=== PATIENT | male | born 1975 ===

== ENCOUNTER 2019-10-16 16:48 | Inpatient (IN) | payer OTHER ==
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
--- NOTE | 2019-10-16 18:59 | XR ---
PROCEDURE: XR foot complete RT - 3V DATE AND TIME: 10/16/2019 6:30 PM CLINICAL INDICATION: Pain; Trauma TECHNIQUE: Department protocol COMPARISON: None FINDINGS: There is no fracture or malalignment. The soft tissues are unremarkable. IMPRESSION: NO ACUTE PROCESS.
--- NOTE | 2019-10-16 19:06 | XR ---
PROCEDURE: XR hand complete bilateral -total 6 views DATE AND TIME: 10/16/2019 6:30 PM CLINICAL INDICATION: PHH; Trauma TECHNIQUE: Department protocol total 6 views COMPARISON: None RIGHT HAND FINDINGS: AP, oblique AP and lateral views. There is overlapping of structures at the four th metacarpal base on the AP and oblique AP views, and even more so on the lateral view. Clinical exc lusion of fracture is requested; correlate for point tenderness. Otherwise, the hand and wrist is ne gative for acute fracture or malalignment. LEFT HAND FINDINGS: AP, oblique AP and lateral views. The bones and joints and soft tissues are nega tive for acute findings. IMPRESSION: 1) RIGHT HAND: Indistinct right fourth metacarpal base radiographic evaluation as discussed. If this position is negative clinically, then the entire radiographic examination is negative for fracture o r malalignment. 2) LEFT HAND: Negative for fracture or malalignment.
[2019-10-16 19:18] LABS: Amphetamine Screen,Urine Not Detected (NotDetected); Barbiturate Screen,Urine Not Detected (NotDetected); Benzodiazepines Screen,Urine Not Detected (NotDetected); Cocaine Screen,Urine Not Detected (NotDetected); Methadone Screen, Urine Not Detected (NotDetected); Opiate Screen,Urine Not Detected (NotDetected); Oxycodone Screen, Urine Not Detected (NotDetected); Phencyclidine Screen,Urine Not Detected (NotDetected); Tricyclic Antidepressant,Urine Not Detected (NotDetected); Urn Cannabinoid Scrn Not Detected (NotDetected)
[2019-10-17] MEDS ORDERED: MAG HYDROX/AL HYDROX/SIMETH 30 ML CUP PO PRN (00:40)
[2019-10-17] MEDS ORDERED: ZIPRASIDONE 20 MG VIAL IM PRN (00:40)
[2019-10-17] MEDS ORDERED: MAGNESIUM HYDROXIDE 2,400 MG/10 ML CUP PO PRN (00:40)
[2019-10-17] MEDS ORDERED: LORazepam 2 MG/ML INJ IM PRN (00:45)
[2019-10-17] MEDS: NICOTINE 14MG/24HR PATCH TRANSDERM SCH (09:24)
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
[2019-10-18] MEDS: NICOTINE 14MG/24HR PATCH TRANSDERM SCH (09:03)
[2019-10-18 09:52] LABS: Basophils # (A) 0.1 k/uL (0-0.2); Basophils % (A) 1 %; Eosinophils # (A) 0.4 k/uL (0-0.7); Eosinophils % (A) 5 %; HCT 47.6 % (39.0-53.0); HGB 15.3 gm/dL (13.0-17.5); Lymphocytes % (A) 27 %; MCH 28.9 pg (25.0-35.0); MCHC 32.1 g/dL (31.0-37.0); Mean Platelet Volume 8.1; Monocytes # (A) 0.4 k/uL (0-1.0); Monocytes % (A) 5 %; Neutrophils # (A) 4.5 k/uL (1.3-7.7); Neutrophils % (A) 60 %; Platelet Count 165 k/uL (150-450); RBC 5.29 m/uL (4.30-5.90); RDW 12.2 % (11.5-15.5); WBC 7.4 k/uL (3.8-10.6)
[2019-10-18 10:12] LABS: ALT 27 U/L (21-72); AST 24 U/L (17-59); African American GFR (CKD) >90 (>60 ml/min/1.73 sqM); Albumin 4.1 g/dL (3.5-5.0); Alkaline Phosphatase 79 U/L (38-126); Anion Gap 7 mmol/L; Blood Urea Nitrogen 11 mg/dL (9-20); Calcium 9.7 mg/dL (8.4-10.2); Carbon Dioxide 28 mmol/L (22-30); Chloride 105 mmol/L (98-107); Cholesterol 147 mg/dL (<200); Glucose 81 mg/dL (74-99); HDL Cholesterol 48 mg/dL (40-60); LDL Cholesterol,Calculated 63 mg/dL (0-99); Non-African American GFR(CKD) >90 (>60 ml/min/1.73 sqM); Potassium 4.3 mmol/L (3.5-5.1); Sodium 140 mmol/L (137-145); Total Bilirubin 0.3 mg/dL (0.2-1.3); Total Protein 6.7 g/dL (6.3-8.2); Triglycerides 180 mg/dL (<150)
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
--- NOTE | 2019-10-18 15:48 | P.PN ---
Progress Note - Text Progress Note Date: 10/18/19 Clinical Problems: Bipolar disorder most recent episode manic without psychotic features Interim history: I reviewed the medical record, interviewed the patient and discuss his treatment and treatment plan during team meeting. Medicine in orthopedic surgery consult appreciated. He met with his divorce attorney this morning and would not stipulate to a treatment order. During our interview he stated he disagrees with my recommendation that he requires treatment with a psychiatric medication. He does not believe that he has a mental illness and will not take psychiatric indications. However, he requested that I complete a medical certificate so that he could withdraw from his residential pension. Mental status exam: He presented as a casually groomed 44-year-old male who was pleasant on approach. He made eye contact and attended to the interview. He had calluses on his knuckles but no prominent physical abnormalities. He had a bright facial expression. He was not restless during interview but is recalling patient unit. He showed pressured speech and he was hyperverbal. His affect was elevated but not inappropriate. He did not express suicidal ideation or wishes. He did not express ideas reference, paranoid ideation or delusions. His thinking was abstract and his associations appeared logical. He did not express clang associations, neologisms or blocking. He denied hallucinations and did not appear to be responding to internal stimuli. Assessment: He has signs and symptoms of acute viktor uncomplicated by psychosis. He is limited insight and understanding of his illness or need for psychiatric treatment. Plan: Continue inpatient hospitalization. Continue safety precautions. Continue her discussion of need for psychotropic medications and offer treatment with a mood stabilizer. Probate hearing scheduled for next week. Evaluate clinical status response to treatment daily basis.
[2019-10-18 16:45] LABS: Hemoglobin A1C 5.4 % (4.0-6.0)
[2019-10-19] MEDS: NICOTINE 14MG/24HR PATCH TRANSDERM SCH (12:29)
--- NOTE | 2019-10-19 12:38 | P.PN ---
Progress Note - Text Progress Note Date: 10/19/19 Clinical Problems: Bipolar disorder most recent episode manic without psychotic features Interim history: I reviewed the medical record, interviewed the patient and discuss his treatment and treatment plan during team meeting. He was hyperverbal and intense. He had multiple complaints and carried with him a stack of papers where he had been keeping notes. 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 He plans to ask the conciliation court judge to ordered him out of the state [place]. 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 I attempted to engage him in a discussion of treatment of his bipolar illness. He remains opposed to treatment and talked about negative experiences during prior hospitalizations. At one point he agreed to take medication "but at 11/14 the dose you recommend." Mental status exam: He presented as a casually groomed 44-year-old male who was pleasant on approach. He made eye contact and attended to the interview. He had calluses on his knuckles but no prominent physical abnormalities. He had a bright facial expression. He was not restless during interview. His speech was loud and pressured. He was hyperverbal. His affect was expansive and intense. He did not express suicidal ideation or wishes. He did not express ideas reference, paranoid ideation or delusions. His thinking was abstract and his associations appeared logical. He did not express clang associations, neologisms or blocking. He denied hallucinations and did not appear to be responding to internal stimuli. Assessment: He has signs and symptoms of acute viktor uncomplicated by psychosis. He is limited insight and understanding of his illness or need for psychiatric treatment. Plan: Continue inpatient hospitalization. Continue safety precautions. Continue efforts to get him to start a mood stabilizer either lithium, Depakote or a second generation antipsychotic. Continue her discussion of need for psychotropic medications and offer treatment with a mood stabilizer. Probate hearing scheduled for next week. Evaluate clinical status response to treatment daily basis.
[2019-10-20] MEDS: NICOTINE 14MG/24HR PATCH TRANSDERM SCH (08:33)
--- NOTE | 2019-10-20 12:50 | P.PN ---
Progress Note - Text Progress Note Date: 10/20/19 Interval history: Patient was seen wandering the hallways and was agreeable to peak in the office. Patient was loud and hyperverbal during conversation and was speaking about "multiple traumas" which he experience at the previous hospital that he was at. He explained of getting several PRN injection medications and claims that he has "PTSD from it". Patient also states that she does not like taking medications and feels that it messes with his head. Patient was tangential and had loose associations and kept on reserve referring to himself as "I have a mental problem". He claims that his mood is "fine" and is somewhat irritable and labile. He admits to fair energy with poor sleep at night. At this time patient denies any suicidal or homicidal ideations intent or plan. Denies any Auditory or visual hallucinations. Patient denies any side effects from the medications and has been compliant with meds. Mental status exam: General Appearance: Patient appears to be stated age is alert, difficult to redirect loud and intrusive. Fair hygiene and grooming. Behavior: No agitated behavior. Patient is loud and irritable at times. Speech: Patient's speech is fluent and nonpressured. Loud and intrusive. Mood/Affect: Mood is "fine", affect is congruent and labile. Suicidality/Homicidality: Patient denies having any suicidal or homicidal ideation intent or plan. Perceptions: Patient denies any auditory or visual hallucinations. Though content/process: Patient experiences some paranoia, is tangential/illogical. Hyperverbal and has racing thoughts. Memory and concentration: AOX3, grossly intact for the purposes of this session Judgment and insight: Poor Assessment/Plan: Continue with current diagnosis. Patient continues to meet criteria for inpatient psychiatric admission for symptom stabilization and safety. Patient is currently awaiting probate Court for next week. Patient was agreeable to take Abilify today to see how will help him. We'll start Abilify 5 mg by mouth daily for mood stabilization/psychosis. Monitor for medication compliance and for any psychotropic medication side effects. Will continue to monitor ongoing response to treatment.
[2019-10-20] MEDS: ARIPiprazole 5 MG TAB PO SCH (13:39)
[2019-10-20] MEDS: IBUPROFEN 600 MG TAB PO PRN (14:52)
[2019-10-20] MEDS: NICOTINE POLACRILEX 2 MG GUM BUCCAL PRN ×2 (14:52→18:38)
[2019-10-20] MEDS: valACYclovir HCL 1,000 MG TABLET PO SCH (20:31)
[2019-10-20] MEDS: LORazepam 1 MG TAB PO PRN (23:46)
[2019-10-21] MEDS: valACYclovir HCL 1,000 MG TABLET PO SCH ×2 (09:04→21:09)
[2019-10-21] MEDS: ARIPiprazole 5 MG TAB PO SCH (09:04)
[2019-10-21] MEDS: NICOTINE 14MG/24HR PATCH TRANSDERM SCH (09:04)
[2019-10-21] MEDS: NICOTINE POLACRILEX 2 MG GUM BUCCAL PRN ×4 (09:05→19:03)
--- NOTE | 2019-10-21 12:40 | P.PN ---
Progress Note - Text Progress Note Date: 10/21/19 Interval history: Patient was seen carrying multiple papers and documents and also a Bible in speaking with the nurse at the nurse's desk and was was agreeable to peak in the office. Patient was mildly less irritable and intrusive todaywith administrative underwriter and mildly more directable during conversation. Patient continues to speak about his mistrust with police and being involved in legal troubles. He spoke about his son and girlfriend not sticking up for him and also how she needs to come up with bail money to pay the police. patient also spoke about the police having his things and him not being able to get them. Patient claims that the Abilify is making him feel calm or and he is taking it. Patient claimed that he took Ativan last night for sleep and was requesting to be put on another medication to help him further with sleep and was agreeable to take Benadryl when necessary. Patient continues to have mistrust from doctors and continues to state "I don't need medications". he was less irritable and labile. He admits to fair energy with poor sleep at night. At this time patient denies any suicidal or homicidal ideations intent or plan. Denies any Auditory or visual hallucinations. Patient denies any side effects from the medications and has been compliant with meds. Mental status exam: General Appearance: Patient appears to be stated age is alert, difficult to redirect loud and intrusive. Fair hygiene and grooming. Behavior: No agitated behavior. Patient is loud and irritable at times. Speech: Patient's speech is fluent and nonpressured. Loud and intrusive. Mood/Affect: Mood is "ok", affect is congruent and labile. Suicidality/Homicidality: Patient denies having any suicidal or homicidal ideation intent or plan. Perceptions: Patient denies any auditory or visual hallucinations. Though content/process: Patient experiences some paranoia, is tangential, lo gical, mildly improved. Hyperverbal and racing thoughts are improving. Memory and concentration: AOX3, grossly intact for the purposes of this session Judgment and insight: Poor, mildly improving. Assessment/Plan: Continue with current diagnosis. Patient continues to meet criteria for inpatient psychiatric admission for symptom stabilization and safety. Patient is currently awaiting probate Court for next week. Patient is agreeable to continue taking Abilify 5 mg daily for mood stabilization/psychosis. added Benadryl 50 mg when necessary for sleep. Monitor for medication compliance and for any psychotropic medication side effects. Will continue to monitor ongoing response to treatment.
[2019-10-21] MEDS: IBUPROFEN 600 MG TAB PO PRN ×2 (13:54→21:10)
[2019-10-21] MEDS: LORazepam 1 MG TAB PO PRN (13:56)
[2019-10-21] MEDS: diphenhydrAMINE 50 MG CAP PO PRN (21:11)
[2019-10-22] MEDS: ARIPiprazole 5 MG TAB PO SCH (08:09)
[2019-10-22] MEDS: NICOTINE 14MG/24HR PATCH TRANSDERM SCH (08:10)
[2019-10-22] MEDS: IBUPROFEN 600 MG TAB PO PRN ×3 (08:10→21:44)
[2019-10-22] MEDS: NICOTINE POLACRILEX 2 MG GUM BUCCAL PRN ×4 (08:11→21:45)
[2019-10-22] MEDS: valACYclovir HCL 1,000 MG TABLET PO SCH ×2 (09:11→21:42)
[2019-10-22] MEDS: ACETAMINOPHEN TAB 325 MG TAB PO PRN (13:58)
--- NOTE | 2019-10-22 15:34 | P.PN ---
Progress Note - Text Progress Note Date: 10/22/19 Interval History: Patient is a 44-year-old male whose chart was reviewed and the patient was seen. Patient during the interview complained about how he been treated in hospitals in the past, how people had been treated in psychiatric hospital that he had been admitted to a year ago but he was unable to tell me the name. Patient states that he is going to see a [facility] doctor to have cameras installed in his body so that he can fill [place] care and show it to people about what's really going on in hospitals because the hospitals are being controlled by the government. Patient then went on to complain about having been a [employer] employee but was fired in August of this year because of a text message that he sent to family members that apparently went to all the contacts in his phone. Patient states that he was also asked to leave the living situation with his fiance and then discussed the fact that he is unaware if whether there is a protective order against him by her and states that he doesn't think that she would have done that. Patient also reported to me that he had been traveling the [place] for the last several months panhandling to understand the life of the homeless and now feels that that is all a scam. Patient then went on to complain about people that over him money and that he has been placed in hospitals for helping people buying them cars, insurance and then went on to complain about a man who he bought a car for use posterior been depositing money in the patient's checking account to pay him back and never has. Patient states that he took a trip to [facility] to study the homeless. Patient reports that he doesn't need medication that he is not going to have medication forced on him as it has been in the past. Patient states that he also moved to [place] in 2018. Patient complained about his dog stating that his dog was his treatment and that when he went on his trip to study the homeless he gave the dog to a friend who is now going to turn the dog over to a nursing home. Patient again stated that he doesn't need meds and he will not be forced to take them and has tried to hire to private attorneys to assist him in some complaint that he has against his former employer and states that he'll tell the court of appeals judge at his commitment hearing that he is not going to take meds and no one can force him to. Patient has been taking the Abilify and Benadryl and other meds of been prescribed here. He states that he did sleep last night for about 5 hours and didn't wake up as frequently as he has in the past but then complained about falling asleep during the day. Patient states that he ate today because a certain staff member was not present and states that when she is present he doesn't eat. Mental Status: Appearance/Attitude: Patient was casually dressed, made intermittent eye contact and was superficially cooperative. Behavior: Patient did not display any psychomotor agitation or retardation Speech/Language: Patient's speech was slightly pressured, of normal volume, he was coherent Thought Process: Patient at times was goal-directed at other times his speech and thoughts were rambling, is preoccupied with financial concerns, medical concerns Thought Content: Patient denied any auditory or visual hallucinations, he did express paranoid ideation about the hospital, patient also stated that he has been traveling to study homelessness, stated that he wanted to have cameras placed in his body so that he could feel how badly patient's or treated in hospitals which are controlled by the government. Patient states that he slept well last night and didn't waken as many times however then complained that he felt sedated during the day. Patient states that he didn't eat because a certain staff member was working but did eat today because she was not. Suicidal/Homicidal Ideation: Patient denied any suicidal or homicidal ideation but stated that should anyone tried to force medication on him he would do something Sensorium/Cognition: Patient is alert and oriented to person, place, and time and his recent and remote memory are grossly intact Mood/Affect: Patient's mood is irritable and labile and his affect is appropriate to his mood Insight/Judgment: Patient's insight and judgment are limited Assessment: Patient has been taking the Abilify that was started as well as Benadryl at bedtime as well as his other medications however he has refused to have his Abilify increased feeling that it is making him too sedated during the day. Patient remains irritable, with slightly pressured speech as well as expressing some paranoid thoughts regarding the hospital, government controlling treatment in the hospital, talks about a trip around the [facility] to understand the life of the homeless. Patient is easily irritated and has been attending groups and activities. Patient states that he will not take any medication as he does not need it and will tell the court of appeals judge this at his hearing on Tuesday. Plan: Patient will continue on Abilify 5 mg daily, Benadryl at night for sleep, patient continues to require hospitalization to stabilize his mood and his court hearing is on Tuesday.
[2019-10-22] MEDS: diphenhydrAMINE 50 MG CAP PO PRN (21:44)
[2019-10-22] MEDS: LORazepam 1 MG TAB PO PRN (21:45)
[2019-10-23 06:39] VITALS: RESP 16
[2019-10-23] MEDS: ARIPiprazole 5 MG TAB PO SCH (07:43)
[2019-10-23] MEDS: IBUPROFEN 600 MG TAB PO PRN (07:43)
[2019-10-23] MEDS: valACYclovir HCL 1,000 MG TABLET PO SCH ×2 (07:47→20:06)
[2019-10-23] MEDS: NICOTINE POLACRILEX 2 MG GUM BUCCAL PRN ×4 (07:48→20:07)
[2019-10-23] MEDS: NICOTINE 14MG/24HR PATCH TRANSDERM SCH (09:32)
[2019-10-23] MEDS ORDERED: ARIPiprazole 5 MG TAB PO STA (11:34)
--- NOTE | 2019-10-23 12:26 | P.PN ---
Progress Note - Text Progress Note Date: 10/23/19 Interval History: Patient is a 44-year-old male who was seen today, he is wearing a brace on his right forearm. Patient states that he still feeling very sleepy in the morning and states that he just got up. Patient complained that the brace was not correct, that he needed to have a cast place and states that he will see a "real doctor" when he is discharged. Patient complained of feeling overly sedated and slowed down, Mental Status: Appearance/Attitude: Patient is casually dressed, he has a brace on his right forearm, makes eye contact and is cooperative Behavior: Patient does not exhibit any psychomotor agitation or retardation Speech/Language: Patient's speech is spontaneous, much less pressured of normal volume and he is coherent Thought Process: Patient is more goal directed no evidence of loose association or flight of ideas Thought Content: Patient denies any auditory or visual hallucinations, no paranoid ideation is elicited and patient did not verbalize spontaneously any delusional or grandiose ideation today. Patient does complain of feeling slowed down, states that he just recently got up and has been oversleeping in the morning. Patient is eating. He reports no complaints of side effects from the medication. Suicidal/Homicidal Ideation: Patient denied any current suicidal or homicidal ideation Sensorium/Cognition: Patient is alert and oriented to person, place, and time and his recent and remote memory are grossly intact. Mood/Affect: Patient's mood is less irritable, his affect is appropriate to his mood Insight/Judgment: Patient's insight and judgment are limited Assessment: Patient appears less irritable today, his speech is much less pressured and patient when he and I discussed his medications was agreeable to an increase in Abilify to 10 mg. Patient has been taking Benadryl 50 mg at bedtime as well as Ativan 1 mg and is complaining of feeling sedated in the morning. Patient does attend groups and activities. Plan: Will increase patient's Abilify to 10 mg in the morning and patient was advised to use Benadryl only at night if he has difficulty sleeping and to avoid using both the Ativan and Benadryl at bedtime as may be contributing to his feeling sedated in the morning. Patient continues to require hospitalization to further stabilize his mood.
[2019-10-24] MEDS: valACYclovir HCL 1,000 MG TABLET PO SCH ×2 (08:22→20:59)
[2019-10-24] MEDS: ARIPiprazole 10 MG TAB PO SCH (08:23)
[2019-10-24] MEDS: NICOTINE POLACRILEX 2 MG GUM BUCCAL PRN ×4 (08:24→20:59)
[2019-10-24] MEDS: IBUPROFEN 600 MG TAB PO PRN (08:38)
[2019-10-24] MEDS: ACETAMINOPHEN TAB 325 MG TAB PO PRN ×2 (13:33→17:33)
--- NOTE | 2019-10-24 14:27 | P.PN ---
Progress Note - Text Progress Note Date: 10/24/19 Interval History: Patient is a 44-year-old male who was seen today, patient states that he felt better today having not taken any Ativan or Benadryl last evening and was not as sedated. Patient states that he's feeling well, attended his court hearing today. Patient states that he is not having any side effects from the medication and stated that he is not having any thoughts of having cameras implanted, did not verbalize any grandiose ideation during our interview. Patient did complain about the brace that he's wearing on his right forearm stating that it isn't helping. Mental Status: Appearance/Attitude: Patient is casually dressed, wearing a brace on his right forearm, made eye contact and was cooperative Behavior: Patient did not exhibit any psychomotor retardation or agitation Speech/Language: Patient's speech was spontaneous and normal volume and rhythm and he was coherent Thought Process: Patient was goal-directed there is no evidence of loose association or flight of ideas Thought Content: Patient denied any auditory or visual hallucinations no delusions, paranoid ideation were elicited, patient states that he slept well last night did not feel sedated this morning. Patient states that he is eating and attending groups. Patient reported no side effects from the medication. Suicidal/Homicidal Ideation: Patient denied any current suicidal or homicidal ideation Sensorium/Cognition: Patient is alert and oriented to person, place, and time and his recent and remote memory are grossly intact Mood/Affect: Patient's mood is less irritable and his affect is appropriate to his mood Insight/Judgment: Patient's insight and judgment are fair Assessment: Patient and I had a long discussion regarding long-acting injectable Abilify and he was willing to receive the injection, I discussed taking Abilify 10 mg for the next 14 days and then it would be discontinued. Patient felt that he slept well last night not taking any Ativan or Benadryl and states that he wasn't sedated today during the day as he has been on prior days. Patient reported no side effects from the medication. Plan: Patient will continue on Abilify 10 mg daily for 14 days and then discontinue it and patient will receive an injection of Abilify Maintena 400 mg today, patient and i discussed if no problems with injection will transfer him back to halfway.
[2019-10-24] MEDS ORDERED: ARIPiprazole IM SYRINGE 400 MG (NO CHARGE) IM ONE (15:00)
[2019-10-25 07:31] VITALS: BP 131/94; PULSE 87; TEMP 98.5
[2019-10-25] MEDS: ARIPiprazole 10 MG TAB PO SCH (08:14)
[2019-10-25] MEDS: IBUPROFEN 600 MG TAB PO PRN (08:15)
[2019-10-25] MEDS: valACYclovir HCL 1,000 MG TABLET PO SCH (08:15)
[2019-10-25] MEDS: NICOTINE POLACRILEX 2 MG GUM BUCCAL PRN ×2 (08:15→13:15)
--- NOTE | 2019-10-25 10:16 | P.DS ---
Providers Date of admission: 10/17/19 00:08 Expected date of discharge: 10/25/19 Attending physician: Marleny Zhu MD Consults: 10/17/19 00:40 Consult Physician Routine Consulting Provider: Xiomara Maddox Consult Reason/Comments: H&P and medical Do you want consulting provider notified?: Yes 10/18/19 00:44 Consult Physician Urgent Consulting Provider: Charanjit Guerra Consult Reason/Comments: R 4th metacarpal fracture Do you want consulting provider notified?: Yes Primary care physician: Stated None Hospital Course: Discharge Diagnosis: bipolar disorder type I, current episode manic with psychotic features Reason for Admission: The patient is a 44-year-old male transferred from [facility] with a petition completed by the rn social work. The petition read "patient was assessed on 10/15/2019. Patient appears to be delusional as evidenced by "I will put cameras in my body." Currently incarcerated for attempted kidnapping." He was unable to provide a coherent explanation for his arrest, incarceration or transfer to the psychiatric hospital. He talked extensively about his projects and activities. His speech was rapid, digressive and circumstantial. He believes that his son or his parents called the police. He talked about "driving in separate cars", saw that a police in the review mirror make a U-turn and follow. He then called 911 and told the lithograph operator that the police were following him. A low speed mily occurred. When he pulled over the was arrested. He complained that he attempted to cooperate with the police but he was still mistreated. He is unable to explain the reason for the arrest. He denied that he was fleeing from the police and denied that he had resisted arrest. He talked about a road trip where he visited several states in order to prove that one could live without money. He talked about live streaming his adventure on Facebook. His explanation of this journey was disjointed and difficult to understand. He also talked about his plan to purchase a "Mariaa" and making multistate journey to the [facility]. The purpose of this trip was again to demonstrate that "you can live without money" in the [facility]. 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 He had talked about owning half-dozen cars and trucks as well as owning various properties. He talked about giving money and clothes to the homeless in various states he visited. He applied to be president and during the ED assessment showed EPS nurse photos of his application. In the ED he talked about implant cameras in his body to document "how much the system sucks." After show "the truth about what's going on inside hospitals." MENTAL STATUS EXAM ON ADMISSION: He presented as a casually groomed middle-aged male who was pleasant on approach. He made eye contact and appeared to attend to the interview. He had abrasions on the knuckles of both hands. He blunted facial expression. He is alert and oriented to person, place and time. He was restless but showed no abnormal movements. His speech was pressured and he was hyperverbal. His speech was tangential and circumstantial. His affect was dysphoric. He was irritable and angry. He did not express suicidal ideation or wishes. He denied homicidal ideation. He denied feeling hopeless, helpless or worthless. He ruminated about the circumstances that led to this hospitalization and about activities prior to this hospitalization. He did not express clear ideas reference or delusional thoughts during our interview. He expressed some paranoid ideation about his family. His thinking was concrete. Associations were not logical. He showed flight of ideas but no clang associations or neologisms. He denied hallucinations and did not appear to be responding to internal stimuli. Global impression of intellect is average. He shows no insight or understanding of his mental illness. In fact, he denied that he has a mental illness or needs mental health treatment. Hospital Course: patient was admitted as an involuntary patient, placed on routine observation and group and activity therapy were ordered. Patient also had a consultation to medicine as well as to orthopedic surgery. Patient initially refused all psychotropic medication, eventually agreed to begin Abilify to target his mood and psychotic symptoms. Patient was started on 5 mg titrated to an oral dose of 10 mg.patient showed improvement and agreed to long acting injectable Abilify 400 mg which was given on October 24. X-rays regarding his possible fractures and left and right hand showed a metatarsal fracture in the right hand in a brace was recommended with follow-up in 2-3 weeks for x-rays.patient was also placed on Valtrex for a 10 day treatment. Patient showed improvement on the unit with no further grandiose or psychotic ideation, was more compliant and cooperative on the unit and was attending groups and activities. Patient was no longer showing pressured speech, was much less irritable and was sleeping and eating well. Patient was felt to be stable to return to long-term. Allergies No Known Allergies Allergy (Verified 10/17/19 02:22) Laboratory Last Values WBC 7.4 k/uL (3.8-10.6) 10/18/19 09:20 RBC 5.29 m/uL (4.30-5.90) 10/18/19 09:20 Hgb 15.3 gm/dL (13.0-17.5) 10/18/19 09:20 Hct 47.6 % (39.0-53.0) 10/18/19 09:20 MCV 90.0 fL (80.0-100.0) 10/18/19 09:20 MCH 28.9 pg (25.0-35.0) 10/18/19 09:20 MCHC 32.1 g/dL (31.0-37.0) 10/18/19 09:20 RDW 12.2 % (11.5-15.5) 10/18/19 09:20 Plt Count 165 k/uL (150-450) 10/18/19 09:20 Neutrophils % 60 % 10/18/19 09:20 Lymphocytes % 27 % 10/18/19 09:20 Monocytes % 5 % 10/18/19 09:20 Eosinophils % 5 % 10/18/19 09:20 Basophils % 1 % 10/18/19 09:20 Neutrophils # 4.5 k/uL (1.3-7.7) 10/18/19 09:20 Lymphocytes # 2.0 k/uL (1.0-4.8) 10/18/19 09:20 Monocytes # 0.4 k/uL (0-1.0) 10/18/19 09:20 Eosinophils # 0.4 k/uL (0-0.7) 10/18/19 09:20 Basophils # 0.1 k/uL (0-0.2) 10/18/19 09:20 Sodium 140 mmol/L (137-145) 10/18/19 09:20 Potassium 4.3 mmol/L (3.5-5.1) 10/18/19 09:20 Chloride 105 mmol/L (98-107) 10/18/19 09:20 Carbon Dioxide 28 mmol/L (22-30) 10/18/19 09:20 Anion Gap 7 mmol/L 10/18/19 09:20 BUN 11 mg/dL (9-20) 10/18/19 09:20 Creatinine 0.89 mg/dL (0.66-1.25) 10/18/19 09:20 Est GFR (CKD-EPI)AfAm >90 (>60 ml/min/1.73 sqM) 10/18/19 09:20 Est GFR (CKD-EPI)NonAf >90 (>60 ml/min/1.73 sqM) 10/18/19 09:20 Glucose 81 mg/dL (74-99) 10/18/19 09:[address] Glu mg/dL 108 10/18/19 09:20 Hemoglobin A1c 5.4 % (4.0-6.0) 10/18/19 09:20 Calcium 9.7 mg/dL (8.4-10.2) 10/18/19 09:20 Total Bilirubin 0.3 mg/dL (0.2-1.3) 10/18/19 09:20 AST 24 U/L (17-59) 10/18/19 09:20 ALT 27 U/L (21-72) 10/18/19 09:20 Alkaline Phosphatase 79 U/L (38-126) 10/18/19 09:20 Total Protein 6.7 g/dL (6.3-8.2) 10/18/19 09:20 Albumin 4.1 g/dL (3.5-5.0) 10/18/19 09:20 Triglycerides 180 mg/dL (<150) H 10/18/19 09:20 Cholesterol 147 mg/dL (<200) 10/18/19 09:20 LDL Cholesterol, Calc 63 mg/dL (0-99) 10/18/19 09:20 HDL Cholesterol 48 mg/dL (40-60) 10/18/19 09:20 TSH 1.470 mIU/L (0.465-4.680) 10/18/19 09:20 Urine Opiates Screen Not Detected (NotDetected) 10/16/19 18:55 Ur Oxycodone Screen Not Detected (NotDetected) 10/16/19 18:55 Urine Methadone Screen Not Detected (NotDetected) 10/16/19 18:55 Ur Propoxyphene Screen Not Detected (NotDetected) 12 18:55 Ur Barbiturates Screen Not Detected (NotDetected) 10/16/19 18:55 U Tricyclic Antidepress Not Detected (NotDetected) 10/16/19 18:55 Ur Phencyclidine Scrn Not Detected (NotDetected) 10/16/19 18:55 Ur Amphetamines Screen Not Detected (NotDetected) 10/16/19 18:55 U Methamphetamines Scrn Not Detected (NotDetected) 10/16/19 18:55 U Benzodiazepines Scrn Not Detected (NotDetected) 10/16/19 18:55 Urine Cocaine Screen Not Detected (NotDetected) 10/16/19 18:55 U Marijuana (THC) Screen Not Detected (NotDetected) 10/16/19 18:55 Discharge Mental Status: Appearance/Attitude: patient is casually dressed, makes eye contact and was cooperative. Behavior: patient did not display any psychomotor agitation or retardation. Speech/Language: patient's speech was spontaneous of normal volume and rhythm and he was coherent. Thought Process: patient was goal-directed there is no evidence of loose association or flight of ideas Thought Content: patient denied any auditory or visual hallucinations and no delusions, paranoid ideation or grandiose ideation was elicited. Patient states that he was sleeping and eating well.patient been cooperative, was attending groups and activities. Suicidal/Homicidal Ideation: patient denied any current suicidal or homicidal ideation Sensorium/Cognition: patient was alert and oriented to person, place, and time and his recent and remote memory were grossly intact Mood/Affect: patient's mood was stable and his affect was appropriate Insight/Judgment: patient's insight and judgment are fair Risk Assessment: patient's risk for readmission is high should he be noncompliant with outpatient treatment and medications Discharge Plan: patient will be returned to long-term, he will continue on Abilify 10 mg for 12 more doses to complete a 2 week course after receiving the long-acting injectable Abilify. Patient received his first injection of Abilify Maintena 400 mg on October 24 and is due for his next injection on 11/21/2019. Patient will also continueon Valtrex 1000 mg twice a day for 5 more days to complete a 10 day course of treatment. He will also continue Benadryl 50 mg at bedtime as needed and ibuprofen 600 mg every 8 hours as needed for pain. Prescriptions will be given to the patient. Patient was advised to be compliant with medication and outpatient treatment once he is released from long-term. Patient Condition at Discharge: Stable Plan - Discharge Summary New Discharge Prescriptions: New ARIPiprazole [Abilify] 10 mg PO DAILY #12 tab ARIPiprazole IM [Abilify Maintena] 400 mg IM QMONTH #1 each diphenhydrAMINE [Benadryl] 50 mg PO HS PRN #14 cap PRN Reason: Insomnia Ibuprofen [Motrin] 600 mg PO Q8H PRN #42 tab PRN Reason: Moderate To Severe Pain valACYclovir HCL [Valtrex] 1,000 mg PO BID #10 tablet Discharge Medication List ARIPiprazole IM [Abilify Maintena] 400 mg IM QMONTH #1 each 10/25/19 [Rx] ARIPiprazole [Abilify] 10 mg PO DAILY #12 tab 10/25/19 [Rx] Ibuprofen [Motrin] 600 mg PO Q8H PRN #42 tab 10/25/19 [Rx] diphenhydrAMINE [Benadryl] 50 mg PO HS PRN #14 cap 10/25/19 [Rx] valACYclovir HCL [Valtrex] 1,000 mg PO BID #10 tablet 10/25/19 [Rx] Follow up Appointment(s)/Referral(s): [facility] [NON-STAFF] - 1 Week Patient Instructions/Handouts: Brief Psychotic Disorder (DC) Activity/Diet/Wound Care/Special Instructions: Activity and diet as tolerated. Avoid the use of street drugs and alcohol. Take all medications as prescribed. When you are in need of refills on your medications please contact your medical provider and/or outpatient psychiatrist to have this done. Please go to scheduled outpatient appointment for aftercare treatment. If symptoms return or become worse, call the crisis line at and/or go to the nearest emergency room for evaluation. Discharge Disposition: DC/TRANSFER COURT/LAW
== END 2019-10-25 15:10 | DRG 885 ==
LOC: EC 16:48 → 3MHU 10-17 00:08
PROVIDERS: ADMIT Psychiatry & Neurology Psychiatry; ATTEND Psychiatry & Neurology Psychiatry
DX: F31.2 Bipolar disorder, current episode manic severe with psychotic features (principal); S62.314A Displaced fracture of base of fourth metacarpal bone, right hand, initial encounter for closed fracture; F17.200 Nicotine dependence, unspecified, uncomplicated; F60.0 Paranoid personality disorder; Z79.899 Other long term (current) drug therapy; Y93.9 Activity, unspecified
CPT/HCPCS: 29125; 80053; 80061; 80306; 82075; 83036; 84443; 85025; 99285